=== PATIENT | male | born 1960 | race African-American/Black ===

== ENCOUNTER 2017-03-26 14:21 | Outpatient (CLI) | payer OTHER ==
--- NOTE | 2017-03-26 15:31 | RAD ---
RIGHT KNEE TWO VIEWS: History: Right knee pain. Prior surgery. FINDINGS: Joint spaces are preserved. There is tricompartmental osteophytosis. Enthesophytes arise from the pa tella. Projecting over the medial aspect of the popliteal fossa is an irregular shaped dystrophic calcifica tion measuring up to 2.1 cm in length. IMPRESSION: 1. Osteoarthritis right knee. 2. Large dystrophic calcification projecting over the medial aspect of the popliteal fossa may repre sent an intracapsular loose body within a [place]mull[place] cyst. Other causes of soft tissue calcification are also possible. POS: [facility]
== END 2017-03-26 14:22 | disposition home or self-care (01) ==
LOC: NAV RAD 14:21
PROVIDERS: ATTEND Family Medicine
DX: Z02.71 Encounter for disability determination (principal)